=== PATIENT | female | born 1945 | race Caucasian/White ===

== ENCOUNTER 2017-01-14 05:40 | Emergency (ER) | payer OTHER, MEDICARE ==
[~2017-01-14] VITALS: Ht 160 cm; Wt 70.0 kg
[2017-01-14 05:44] VITALS: Ht 160 cm; Wt 70.0 kg
[2017-01-14] MEDS ORDERED: IBUP-1542 PO (06:37)
--- NOTE | 2017-01-14 06:48 | ERD ---
ER Documentation Chief Complaint Date/Time DATE: 01/14/17 TIME: 06:41 Chief Complaint right foot swelling HPI Patient is a 71-year-old female who presents to the emergency department with right foot swelling and redness 3 days. Patient states that she saw her primary care physician and was prescribed Keflex. Patient reports taking 1 day of medication only. Patient reports doing salt water soaks. Patient denies any falls or trauma. Patient denies any fevers or chills. Patient denies any nausea, vomiting, chest pain, shortness of breath. Patient is able to ambulate without any difficulty. Patient denies any recent outdoor activity. Patient denies history of diabetes. Patient denies any previous history of DVT or PEs. ROS All systems reviewed and are negative except as per history of present illness. Medications Home Meds Active Scripts Ibuprofen* (Motrin*) 600 Mg Tab, 600 MG PO Q6, #20 TAB Prov:BANDAR THOMAS PA-C 01/14/17 Allergies Allergies: Coded Allergies: No Known Allergy (Unverified , 01/14/17) PMhx/Soc Medical and Surgical Hx: pt denies Medical Hx, pt denies Surgical Hx Hx Alcohol Use: No Hx Substance Use: No Hx Tobacco Use: No Smoking Status: Never smoker FmHx Family History: No diabetes Physical Exam Vitals Vital Signs Date Time Temp Pulse Resp B/P Pulse Ox O2 Delivery O2 Flow Rate FiO2 01/14/17 05:44 97.3 88 20 134/64 98 Physical Exam GENERAL: Well-developed, well-nourished female. Appears in no acute distress. HEAD: Normocephalic, atraumatic. EYES: Pupils are equally reactive bilaterally. EOMs grossly intact. No conjunctival erythema. ENT: Moist mucous membranes. No uvula deviation. No kissing tonsils. NECK: Supple. No meningismus. Normal range of motion of the neck. LUNG: Clear to auscultation bilaterally. No rhonchi, wheezing, rales or coarse breath sounds. HEART: Regular rate and rhythm. No murmurs, rubs or gallops. EXTREMITIES: Equal pulses bilaterally. No peripheral clubbing, cyanosis or edema. No unilateral leg swelling. NEUROLOGIC: Alert and oriented. Moving all four extremities without any difficulty. Normal speech. Steady gait. SKIN: Normal color. Warm and dry. Erythema and swelling noted to the lateral aspect of the patient's right foot. Minimal warmth. No lymphatic streaking. No fluctuance or induration. Procedures/MDM MEDICAL DECISION MAKING: This is a 71-year-old female who presents with right foot swelling and redness 3 days. Denies any fevers or chills. Patient has been taking Keflex however she is only taking 1 days thus far. Vital signs were reviewed. Patient was afebrile. Patient was not hypoxic. Patient was not tachycardic. Patient is not diabetic. Skin exam revealed erythema and swelling to the patient's lateral right foot. No lymphatic streaking was noted.Given these findings, the patient's presentation is most consistent with cellulitis. I have a much lower clinical concern for necrotizing fasciitis, sepsis, gangrene, Dex-César syndrome, toxic epidural necrolysis, abscess, allergic reaction, insect bite, DVT, ankle fracture or ankle dislocation. Redness and swelling was outlined on the patient's foot, date and time. Patient was advised to return immediately to the ED for any spreading redness or swelling. I discussed patient's case with my supervising physician Dr. Hugo agrees with my plan. At this time, patient remains appropriate for outpatient management and should continue to take Keflex for at least another 1 to 2 days before reevaluation. PRESCRIPTIONS: Ibuprofen DISCHARGE: At this time, patient is stable for discharge and outpatient management. Epsom salt baths advised. Continue antibiotics as prescribed. Wound recheck advised in 2 days. Patient advised to return sooner for any spreading redness or swelling beyond the marked area. I have instructed the patient to follow-up with his/her primary care physician in 1-2 days. If symptoms persist, patient may need to see a bill poster installer for further examinations and testing. I have instructed the patient to promptly return to the ER at any time for any new or worsening symptoms including increased pain, fever, redness, swelling, warmth, difficulty breathing or vomiting. The patient and/or family expressed understanding of and agreement with this plan. All questions were answered. Home care instructions were provided. Departure Diagnosis: Primary Impression: Cellulitis Site of cellulitis: unspecified site Qualified Code: L03.90 - Cellulitis, unspecified cellulitis site Condition: Stable Patient Instructions: Cellulitis Referrals: COMM[facility]ITY CLIN[facility] YOU HAVE RECEIVED A MEDICAL SCREENING EXAM AND THE RESULTS INDICATE THAT YOU DO NOT HAVE A CONDITION THAT REQUIRES URGENT TREATMENT IN THE EMERGENCY DEPARTMENT. FURTHER EVALUATION AND TREATMENT OF YOUR CONDITION CAN WAIT UNTIL YOU ARE SEEN IN YOUR DOCTORS OFFICE WITHIN THE NEXT 1-2 DAYS. IT IS YOUR RESPONSIBILITY TO MAKE AN APPOINTMENT FOR FOLOW-UP CARE. IF YOU HAVE A PRIMARY DOCTOR --you should call your primary doctor and schedule an appointment IF YOU DO NOT HAVE A PRIMARY DOCTOR YOU CAN CALL OUR PHYSICIAN REFERRAL HOTLINE AT IF YOU CAN NOT AFFORD TO SEE A PHYSICIAN YOU CAN CHOSE FROM THE FOLLOWING [facility] [address] [facility] [address] [facility] [facility] [address] [facility] [facility] [address] [facility] [address] [facility]. [facility] [address] [facility]. [facility] YOU HAVE RECEIVED A MEDICAL SCREENING EXAM AND THE RESULTS INDICATE THAT YOU DO NOT HAVE A CONDITION THAT REQUIRES URGENT TREATMENT IN THE EMERGENCY DEPARTMENT. FURTHER EVALUATION AND TREATMENT OF YOUR CONDITION CAN WAIT UNTIL YOU ARE SEEN IN YOUR DOCTORS OFFICE WITHIN THE NEXT 1-2 DAYS. IT IS YOUR RESPONSIBILITY TO MAKE AN APPOINTMENT FOR FOLOW-UP CARE. IF YOU HAVE A PRIMARY DOCTOR --you should call your primary doctor and schedule and appointment IF YOU DO NOT HAVE A PRIMARY DOCTOR YOU CAN CALL OUR PHYSICIAN REFERRAL HOTLINE AT . IF YOU CAN NOT AFFORD TO SEE A PHYSICIAN YOU CAN CHOSE FROM THE FOLLOWING [facility]: [facility] [address] [place] [address] [facility] [address] [place] [address] [facility] [address] [place] [address] Additional Instructions: Return in 2 days for wound recheck. Continue take antibiotics as prescribed. Return sooner for any worsening redness, swelling, warmth, severe pain. Return if redness spreads beyond the marked area. Call your primary care doctor TOMORROW for an appointment during the next 1-2 days.See the doctor sooner or return here if your condition worsens before your appointment time. BANDAR THOMAS PA-C Jan 14, 2017 06:48
== END 2017-01-14 07:00 | disposition home or self-care (01) ==
LOC: FTE 05:40
DX: L03.115 Cellulitis of right lower limb (principal)
CPT/HCPCS: 99283